=== PATIENT | male | born 1960 | race Caucasian/White ===

== ENCOUNTER 2017-10-27 12:22 | Day surgery (SDC) | payer OTHER ==
[2017-10-27] MEDS ORDERED: CEFAZOLIN 2 GM/50 ML (PMX) 50 ML IVPB (13:30)
[2017-10-27] MEDS ORDERED: SOD CHLORIDE 0.9% 1,000 ML IV (13:30)
== END 2017-10-27 13:30 | disposition home or self-care (01) ==
LOC: SDS 12:22
DX: K42.9 Umbilical hernia without obstruction or gangrene (principal); Z53.9 Procedure and treatment not carried out, unspecified reason

== ENCOUNTER 2017-11-21 08:20 | Day surgery (SDC) | payer OTHER ==
[~2017-11-21 08:20] MED LIST: ESMOLOL 100 MG INJ
[2017-11-21] MEDS ORDERED: SOD CHLORIDE 0.9% 1,000 ML IV (08:30)
[2017-11-21] MEDS ORDERED: CEFAZOLIN 2 GM/50 ML (PMX) 50 ML IVPB (08:30)
[2017-11-21 09:10] LABS: ADD MAN DIFF? NO
[2017-11-21 09:18] LABS: WHITE BLOOD COUNT 5.3 10^3/ul (4.8-10.8)
[2017-11-21 09:18] LABS: BASOPHIL # 0.1 10^3/ul (0.0-0.1); BASOPHILS % 1.3 % (0.0-2.0); EOSINOPHILS # 0.5 10^3/ul (0.0-0.5); EOSINOPHILS % 9.1 % (0.0-7.0); HEMATOCRIT 43.6 % (42.0-52.0); HEMOGLOBIN 13.9 g/dl (14.0-18.0); LYMPHOCYTES # 1.8 10^3/ul (0.8-2.9); LYMPHOCYTES % 34.7 % (15.0-51.0); MEAN CORPUSCULAR HEMOGLOBIN 25.6 pg (29.0-33.0); MEAN CORPUSCULAR HGB CONC 31.9 g/dl (32.0-37.0); MEAN CORPUSCULAR VOLUME 80.1 fl (82.0-101.0); MEAN PLATELET VOLUME 10.8 fl (7.4-10.4); MONOCYTE # 0.7 10^3/ul (0.3-0.9); MONOCYTES % 13.5 % (0.0-11.0); NEUTROPHIL # 2.1 10^3/ul (1.6-7.5); NEUTROPHILS % 40.8 % (39.0-77.0); PLATELET COUNT 307 10^3/UL (140-415); RED BLOOD COUNT 5.44 10^6/ul (4.70-6.10); RED CELL DISTRIBUTION WIDTH 16.3 % (11.5-14.5)
[2017-11-21 09:36] LABS: ALANINE AMINOTRANSFERASE 51 IU/L (13-69); ALKALINE PHOSPHATASE 47 IU/L (42-121); ANION GAP 17 (8-16); ASPARTATE AMINO TRANSFERASE 30 IU/L (15-46); CARBON DIOXIDE 27 mmol/L (21-31); CHLORIDE 108 mmol/L (97-110); GLUCOSE 97 mg/dl (70-220)
[2017-11-21 09:37] LABS: ALBUMIN 4.4 g/dl (3.3-4.9); ALBUMIN/GLOBULIN RATIO 1.37; TOTAL PROTEIN 7.6 g/dl (6.1-8.1)
[2017-11-21 09:41] LABS: INR 0.98; PARTIAL THROMBOPLASTIN TIME 26.7 Sec (25.0-35.0); PROTIME 13.1 Sec (11.9-14.9)
[2017-11-21 09:44] LABS: BLOOD UREA NITROGEN 11 mg/dl (7-20); CALCIUM 9.4 mg/dl (8.4-10.2); CREATININE 0.83 mg/dl (0.61-1.24); POTASSIUM 4.1 mmol/L (3.5-5.1); SODIUM 148 mmol/L (135-144)
[2017-11-21] MEDS ORDERED: MIDAZOLAM 1 MG/ML 2 ML INJ (11:36)
[2017-11-21] MEDS ORDERED: ONDANSETRON 4 MG INJ (11:36)
[2017-11-21] MEDS ORDERED: CEFAZOLIN 1 GM INJ (11:36)
[2017-11-21] MEDS ORDERED: GLYCOPYRROLATE 0.4 MG INJ (11:36)
[2017-11-21] MEDS ORDERED: DEXAMETHASONE 4 MG/ML 1 ML INJ (11:36)
[2017-11-21] MEDS ORDERED: FENTAnyl 50 MCG/ML VIAL (11:36)
[2017-11-21] MEDS ORDERED: PROPOFOL 20 ML (11:36)
[2017-11-21] MEDS ORDERED: ROCURONIUM 50 MG INJ (11:36)
[2017-11-21] MEDS ORDERED: NEOSTIGMINE 3 MG/3 ML SYRINGE (11:36)
[2017-11-21] MEDS ORDERED: LABETALOL HCL 20MG INJ (11:51)
[2017-11-21] MEDS ORDERED: EPHEDrine SULFATE 50 MG/5 ML SYG (12:04)
[2017-11-21] MEDS ORDERED: SUGAMMADEX SODIUM 200 MG/2 ML VIAL IV ×2 (12:25→12:29)
[2017-11-21] MEDS ORDERED: OXYCODONE/ACETAMINOPHEN (5/325) TAB PO (13:00)
[2017-11-21] MEDS ORDERED: IPRATROPIUM (NEB) 0.5 MG/2.5 ML AMP HHN (13:00)
[2017-11-21] MEDS ORDERED: TRIMETHOBENZAMIDE 100 MG/ML VIAL IM (13:00)
[2017-11-21] MEDS ORDERED: FENTAnyl 50 MCG/ML VIAL IV ×3 (13:00)
[2017-11-21] MEDS ORDERED: DIPHENHYDRAMINE 50 MG INJ IV (13:00)
[2017-11-21] MEDS ORDERED: EPHEDrine SULFATE 50 MG/5 ML SYG IV (13:00)
[2017-11-21] MEDS ORDERED: hydrALAzine 20 MG INJ IV (13:00)
[2017-11-21] MEDS ORDERED: LABETALOL HCL 20MG INJ IV (13:00)
[2017-11-21] MEDS ORDERED: MIDAZOLAM 1 MG/ML 2 ML INJ IV (13:00)
[2017-11-21] MEDS ORDERED: ALBUTEROL 0.083% (NEB) 2.5 MG/3 ML AMP HHN (13:00)
[2017-11-21] MEDS: MEPERIDINE 25 MG INJ IV (13:14)
[2017-11-21] MEDS: HYDROmorphONE (0.2 MG/ML) 10ML SYG IV ×4 (13:19→13:59)
[2017-11-21] MEDS: ONDANSETRON 4 MG INJ IV (13:24)
[2017-11-21] MEDS: OXYCODONE/ACETAMINOPHEN (5/325) TAB PO (14:42)
== END 2017-11-21 15:11 | disposition home or self-care (01) ==
LOC: SDS 08:20
DX: K42.9 Umbilical hernia without obstruction or gangrene (principal); T81.4XXA Infection following a procedure, initial encounter; L02.216 Cutaneous abscess of umbilicus; Y83.8 Other surgical procedures as the cause of abnormal reaction of the patient, or of later complication, without mention of misadventure at the time of the procedure; E66.9 Obesity, unspecified; Z68.31 Body mass index [BMI] 31.0-31.9, adult
CPT/HCPCS: 49585; 71045; 80053; 85025; 85610; 85730; 88302; 88305; 93005